=== PATIENT | female | born 1935 | race Caucasian/White ===

== ENCOUNTER 2017-09-27 22:49 | Emergency (ER) | payer MEDICARE, OTHER ==
[2017-09-27 23:29] LABS: CHLORIDE,CL 96 mmol/L (101-111); SODIUM,NA 134 mmol/L (135-145)
--- NOTE | 2017-09-27 23:36 | EDM.PDOC ---
ED HPI GENERAL MEDICAL PROBLEM - General Chief Complaint: Chest Pain Stated Complaint: IN BY AMBULANCE Time Seen by Provider: 09/27/17 22:55 Source of Information: Reports: Patient, EMS History Limitations: Reports: Altered Mental Status (Patient confused, history of dementia) - History of Present Illness INITIAL COMMENTS - FREE TEXT/NARRATIVE: ED via [facility], reported c/o of chest pain one hour ago. Patient denies pain now. . Patient reports hx of ND in past and pain similar , unsure how long it lasted , unable to describe quality. No nausea reported. Poor historian, hx of dementia. Family did contact for update, report she has been more "goofy this week" and having hallucinations of people in her room New medication started on Thursday. Appears from record she had been on seroquel but risparadol was added. No indication given for reason for medication change. 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: IV/IO - Related Data Allergies Allergy/AdvReac Type Severity Reaction Status Date / Time No Known Allergies Allergy Verified 09/27/17 23:11 Home Meds: Home Meds Aspirin [Halfprin] 81 mg PO BRK 09/27/17 [History] Benazepril HCl [Lotensin] 40 mg PO DAILY 09/27/17 [History] Cetirizine HCl [Zyrtec] 10 mg PO QPM 09/27/17 [History] Chlorthalidone [Chlorthalidone] 12.5 mg PO DAILY 09/27/17 [History] Clopidogrel Bisulfate [Clopidogrel] 75 mg PO DAILY 09/27/17 [History] Lactobacillus Combo No.13 [Probiotic Pearls Complete] 1 each PO DAILY 09/27/17 [ History] Metoprolol Succinate 50 mg PO DAILY 09/27/17 [History] QUEtiapine Fumarate [Seroquel] 50 mg PO DAILY 09/27/17 [History] Sertraline [Zoloft] 100 mg PO DAILY 09/27/17 [History] Triamcinolone Acetonide [Triamcinolone Acetonide 0.1% Crm] 15 gm TOP TID [History] Vit C/E/Zn/Coppr/Lutein/Zeaxan [Preservision Areds 2 Softgel] 2 cap PO BID 09/27 [History] atorvaSTATin [Lipitor] 40 mg PO BEDTIME 09/27/17 [History] risperiDONE [risperiDONE] 1 mg PO DAILY 09/27/17 [History] Past Medical History Cardiovascular History: Reports: High Cholesterol, Hypertension, ND Other Cardiovascular History: Atherosclerotic Heart Disease of [place] Coronary Artery without Angina Pectoris 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: Other (See Below) Other OB/BYN History: Uterovaginal Prolapse, Unspecified Musculoskeletal History: Reports: Other (See Below) Other Musculoskeletal History: Other specified disorders of Bone Density and Structure, Unspecified Site Neurological History: Reports: Cerebral Aneurysms Psychiatric History: Reports: Anxiety, Hallucinations, Other (See Below) Other Psychiatric History: Insomnia, Unspecified Social & Family History - Tobacco Use Smoking Status *Q: Never Smoker Second Hand Smoke Exposure: No - Caffeine Use Caffeine Use: Reports: Coffee - Recreational Drug Use Recreational Drug Use: No ED ROS GENERAL - Review of Systems Review Of Systems: ROS reveals no pertinent complaints other than HPI. ED EXAM, GENERAL - Physical Exam Exam: See Below Exam Limited By: No Limitations General Appearance: Alert, No Apparent Distress Eye Exam: Bilateral Eye: EOMI, PERRL Ears: Normal External Exam, Normal TMs Nose: Normal Inspection Throat/Mouth: Normal Inspection Head: Atraumatic, Normocephalic Neck: Normal Inspection, Full Range of Motion. No: Carotid Bruit, Lymphadenopathy (L), Lymphadenopathy (R), Thyromegaly Respiratory/Chest: No Respiratory Distress, Lungs Clear, Normal Breath Sounds Cardiovascular: Normal Peripheral Pulses, Regular Rate, Rhythm. No: No Edema (1 +) GI/Abdominal: Normal Bowel Sounds, Soft Back Exam: Full Range of Motion Extremities: Non-Tender Neurological: Alert, Normal Gait, Disoriented, Other (Oriented to person, difficult). No: Oriented Psychiatric: Normal Affect, Normal Mood Skin Exam: Warm, Dry, Intact, Petechiae (lower legs) Course - Vital Signs Last Recorded V/S: Last Vital Signs Temp 96.8 F 09/27/17 22:53 Pulse 69 09/27/17 22:53 Resp 15 09/27/17 22:53 BP 139/114 H 09/27/17 22:53 Pulse Ox 95 09/27/17 22:53 - Orders/Labs/Meds Orders: Active Orders 24 hr Category Date Time Status EKG Documentation Completion [RC] URGENT Care 09/27/17 22:51 Active Orthostatic Vital Signs [RC] ASDIRECTED Care 09/28/17 01:52 Active CULTURE URINE [RM] Stat Lab 09/28/17 02:15 Ordered Labs: Laboratory Tests 09/27/17 09/27/17 09/27/17 Range/Units 22:58 22:58 22:58 WBC 7.5 (5.0-10.0) 10^3/uL RBC 3.78 L (4.2-5.4) 10^6/uL Hgb 11.6 L (12.0-16.0) g/dL Hct 34.4 L (37.0-47.0) % MCV 91.0 (80-100) fL MCH 30.7 (27.0-34.0) pg MCHC 33.7 (33.0-35.0) g/dL Plt Count 189 (150-450) 10^3/uL Neut % (Auto) 55.4 (42.2-75.2) % Lymph % (Auto) 28.6 (20.5-50.1) % Nash % (Auto) 9.1 H (2-8) % Eos % (Auto) 6.6 H (1.0-3.0) % Baso % (Auto) 0.3 (0.0-1.0) % PT 9.9 (9.0-12.0) SEC INR 1.0 (0.9-1.2) Sodium 134 L (135-145) mmol/L Potassium 3.1 L (3.6-5.0) mmol/L Chloride 96 L (101-111) mmol/L Carbon Dioxide 30.0 (21.0-31.0) mmol/L Anion Gap 11.1 BUN 15 (7-18) mg/dL Creatinine 0.7 (0.6-1.3) mg/dL Est Cr Clr Drug Dosing TNP Estimated GFR (MDRD) > 60 BUN/Creatinine Ratio 21.42 Glucose 108 H (74-105) mg/dL Calcium 9.0 (8.4-10.2) mg/dl Magnesium 1.8 (1.8-2.5) mg/dL Total Bilirubin 0.4 (0.2-1.0) mg/dL AST 21 (10-42) IU/L ALT 19 (10-60) IU/L Alkaline Phosphatase 66 (42-121) IU/L Troponin I < 0.02 (0.00-0.02) ng/ml B-Natriuretic Peptide 47 (0-100) pg/ml Total Protein 7.2 (6.7-8.2) g/dl Albumin 3.8 (3.2-5.5) g/dl Globulin 3.4 Albumin/Globulin Ratio 1.12 Amylase 118 H (28-100) U/L Urine Color (YELLOW) Urine Appearance (CLEAR) Urine pH (5.0-9.0) Ur Specific [place] (1.005-1.030) Urine Protein (NEGATIVE) Urine Glucose (UA) (NEGATIVE) Urine Ketones (NEGATIVE) mg/dL Urine Occult Blood (NEGATIVE) Urine Nitrite (NEGATIVE) Urine Bilirubin (NEGATIVE) Urine Urobilinogen (0.2-1.0) mg/dL Ur Leukocyte Esterase (NEGATIVE) Urine RBC /HPF Urine WBC (0-5/HPF) /HPF Ur Epithelial Cells /HPF Urine Bacteria (0-FEW/HPF) /HPF 09/27/17 09/28/17 Range/Units 23:35 01:52 WBC (5.0-10.0) 10^3/uL RBC (4.2-5.4) 10^6/uL Hgb (12.0-16.0) g/dL Hct (37.0-47.0) % MCV (80-100) fL MCH (27.0-34.0) pg MCHC (33.0-35.0) g/dL Plt Count (150-450) 10^3/uL Neut % (Auto) (42.2-75.2) % Lymph % (Auto) (20.5-50.1) % Nash % (Auto) (2-8) % Eos % (Auto) (1.0-3.0) % Baso % (Auto) (0.0-1.0) % PT (9.0-12.0) SEC INR (0.9-1.2) Sodium (135-145) mmol/L Potassium (3.6-5.0) mmol/L Chloride (101-111) mmol/L Carbon Dioxide (21.0-31.0) mmol/L Anion Gap BUN (7-18) mg/dL Creatinine (0.6-1.3) mg/dL Est Cr Clr Drug Dosing Estimated GFR (MDRD) BUN/Creatinine Ratio Glucose (74-105) mg/dL Calcium (8.4-10.2) mg/dl Magnesium (1.8-2.5) mg/dL Total Bilirubin (0.2-1.0) mg/dL AST (10-42) IU/L ALT (10-60) IU/L Alkaline Phosphatase (42-121) IU/L Troponin I < 0.02 (0.00-0.02) ng/ml B-Natriuretic Peptide (0-100) pg/ml Total Protein (6.7-8.2) g/dl Albumin (3.2-5.5) g/dl Globulin Albumin/Globulin Ratio Amylase (28-100) U/L Urine Color Light yellow (YELLOW) Urine Appearance Clear (CLEAR) Urine pH 7.0 (5.0-9.0) Ur Specific [place] 1.010 (1.005-1.030) Urine Protein Negative (NEGATIVE) Urine Glucose (UA) Negative (NEGATIVE) Urine Ketones Negative (NEGATIVE) mg/dL Urine Occult Blood Negative (NEGATIVE) Urine Nitrite Negative (NEGATIVE) Urine Bilirubin Negative (NEGATIVE) Urine Urobilinogen 0.2 (0.2-1.0) mg/dL Ur Leukocyte Esterase Small H (NEGATIVE) Urine RBC 0-5 /HPF Urine WBC 0-5 (0-5/HPF) /HPF Ur Epithelial Cells Few /HPF Urine Bacteria Few (0-FEW/HPF) /HPF Meds: Medications Discontinued Medications Generic Name Dose Route Start Last Admin Trade Name Freq PRN Reason Stop Dose Admin Potassium Chloride 20 meq 09/28/17 00:09 09/28/17 00:15 Klor-Con 10 PO 09/28/17 00:10 20 meq ONETIME ONE Administration - Radiology Interpretation Free Text/Narrative:: CT head no acute process CXR negative - Re-Assessments/Exams Free Text/Narrative Re-Assessment/Exam: 09/28/17 02:[address] Avalos regarding patient. Recommend transfer to [facility] as ptient needing pysch consult. Family notified, Son Jama prefers not to have patient transferre. TC with Dr. Avalos regarding sons desire not to have patient transferred . Dr. Avalos of similar opinion that patient needs services that cannot be provided at facility or as outpatient. Dr. Mchugh accepting of patient Tx via [facility]. Patient has been quiet and cooperative. Remains confused worse with recent recall or events. Repeat troponin negative. VSS. Departure - Departure Time of Disposition: 02:59 Disposition: DC/Tfer to Acute Hospital 02 Reason for Transfer *Q: Other Condition: Undetermined Clinical Impression: Confusion and disorientation, Hypokalemia, Visual hallucinations, Medication therapy changed, Hx of myocardial infarction, Hx of anxiety disorder Chest pain Qualifiers: Chest pain type: unspecified Qualified Code(s): R07.9 - Chest pain, unspecified Dementia Qualifiers: Dementia type: unspecified type Dementia behavioral disturbance: without behavioral disturbance Qualified Code(s): F03.90 - Unspecified dementia without behavioral disturbance Forms: ED Department Discharge - My Orders Last 24 Hours: My Active Orders 09/27/17 22:51 EKG Documentation Completion [RC] URGENT 09/28/17 01:52 Orthostatic Vital Signs [RC] ASDIRECTED 09/28/17 02:15 CULTURE URINE [RM] Stat - Assessment/Plan Last 24 Hours: My Active Orders 09/27/17 22:51 EKG Documentation Completion [RC] URGENT 09/28/17 01:52 Orthostatic Vital Signs [RC] ASDIRECTED 09/28/17 02:15 CULTURE URINE [RM] Stat
[2017-09-28] MEDS ORDERED: Potassium Chloride 10 MEQ Tab.ER PO ONE (00:09)
--- NOTE | 2017-09-29 12:18 | EKG ---
09/27/2017 - VIOLETA CARUSO - Twelve-lead EKG shows normal sinus rhythm with no significant ST elevation or ST depression. Nonspecific ST-T wave changes noted on lead 2. [facility] /[id number]
== END 2017-09-28 03:23 ==
LOC: DL.ED 22:49
DX: R07.9 Chest pain, unspecified (principal); F03.90 Unspecified dementia, unspecified severity, without behavioral disturbance, psychotic disturbance, mood disturbance, and anxiety; F41.9 Anxiety disorder, unspecified; R44.1 Visual hallucinations; E87.6 Hypokalemia; I25.2 Old myocardial infarction; E78.00 Pure hypercholesterolemia, unspecified; I10 Essential (primary) hypertension; Z79.82 Long term (current) use of aspirin; Z79.899 Other long term (current) drug therapy
CPT/HCPCS: 36415; 70450; 71010; 80053; 81001; 82150; 83735; 83880; 84484; 85025; 85610; 87086; 93005; 93010; 99285; A9270